=== PATIENT | female | born 1985 | race Caucasian/White ===

== ENCOUNTER 2017-09-05 11:50 | Inpatient (IN) | payer OTHER ==
[~2017-09-05] VITALS: Ht 165.1 cm; Wt 87.1 kg
[~2017-09-05 11:50] MED LIST: TRIAMCINOLONE A80 G2 TOP
[2017-09-05 11:57] VITALS: BP 113/71
[2017-09-05] MEDS ORDERED: WELLBUTRIN XL300 MG PO (12:00)
[2017-09-05 12:27] LABS: HEMATOCRIT 41.8 % (37.0-47.0); HEMOGLOBIN 14.2 gm/dL (12.0-15.0); MCH 29.7 pg (26.0-34.0); MCHC 34.1 g/dL (28.0-37.0); MCV 87.2 fL (80.0-100.0); MPV 8.3 fl. (7.2-11.1); NUCLEATED RBCS 0 /100WBC; PLATELET COUNT* 203 thou/uL (150-400); RBC 4.79 mil/uL (4.20-5.00); WBC 21.3 thou/uL (4.0-11.0)
[2017-09-05 12:42] LABS: CALCIUM 9.2 mg/dL (8.5-10.1); CREATININE 0.7 mg/dL (0.6-1.3); TOTAL PROTEIN 8.1 g/dL (6.4-8.2)
[2017-09-05 12:46] LABS: ABSOLUTE LYMPHOCYTES 1.1 thou/uL (0.8-5.3); ABSOLUTE MONOCYTES 0.4 thou/uL (0.0-1.2); ABSOLUTE NEUTROPHILS 19.8 thou/uL (1.6-8.1); PLATELET ESTIMATE ADEQUATE
[2017-09-05 12:48] LABS: ALBUMIN 3.9 g/dL (3.4-5.0); POTASSIUM 3.1 mmol/L (3.5-5.1)
[2017-09-05 13:22] LABS: URINE BILIRUBIN NEGATIVE (Negative); URINE BLOOD 2+ (Negative); URINE CLARITY CLEAR; URINE COLOR ORANGE; URINE GLUCOSE-RANDOM NEGATIVE (Negative); URINE KETONES 1+ (Negative); URINE LEUKOCYTES-REFLEX 1+ (Negative); URINE NITRITE-REFLEX NEGATIVE (Negative); URINE PROTEIN NEGATIVE (Negative); URINE UROBILINOGEN 0.2 E.U./dl (0.2-1.0)
[2017-09-05 13:28] LABS: BACTERIA-REFLEX 1-9 Few /HPF (None Seen); CASTS None Seen /LPF (None Seen); CRYSTALS None Seen /LPF (None Seen); SQUAMOUS 4-10 Moderate /LPF (0-3); URINE RBC 3-10 Few /HPF (0-2); URINE WBC-REFLEX 0-5 Rare /HPF (0-5)
[2017-09-05 15:43] VITALS: BP 93/49
[2017-09-05 16:32] VITALS: BP 111/69
[2017-09-05 19:35] VITALS: BP 113/65
--- NOTE | 2017-09-05 19:55 | NUR ---
PATIENT ARRIVED FROM ER AT 1615. PATIENT SETTLED TO ROOM. HISTORY, ASSESSMENT AND VITALS COMPLETED AND DOCUMENTED. PATIENT HAD COMPLAINTS OF ABDOMINAL CRAMPING TREATED PARTIALLY WITH MORPHINE. DR DUNLAP NOTIFIED AND CHANGED TO [facility]. PATIENT TOLERATING CLEAR LIQUIDS. PATIENT HAS HAD NO NAUSEA/VOMITING SINCE ARRIVING TO UNIT. PATIENT FAMILY UNHAPPY THAT DR NOT ROUNDING TONIGHT, FAMILY REASSURED OF TREATMENT PLAN AND THAT DOCTOR WILL ROUNF TOMORROW. PATIENT HAS CALL LIGHT WITHIN REACH. WILL CONTINUE TO MONITOR.
[2017-09-06 03:16] VITALS: BP 102/54
[2017-09-06 04:51] LABS: HEMATOCRIT 31.9 % (37.0-47.0); MCH 29.6 pg (26.0-34.0); MCHC 33.7 g/dL (28.0-37.0); MPV 9.2 fl. (7.2-11.1); RBC 3.62 mil/uL (4.20-5.00); RDW-CV 13.4 % (10.5-14.5); WBC 12.1 thou/uL (4.0-11.0)
[2017-09-06 04:59] LABS: HEMOGLOBIN 10.7 gm/dL (12.0-15.0)
--- NOTE | 2017-09-06 05:11 | NUR ---
PT SLEPT AT INTERVALS DURING THE NIGHT, IV FLUIDS AND ANTIBIOTICS GIVEN, SPOE WITH DR. DUNLAP AT START OF SHIFT AND PAIN MED CHANGED TO [facility]. PT REPORTS IMPROVED PAIN RELIEF. UP SBA TO THE BATHROOM, WARM BLANKET TO ABDOMEN WELL. CALL LIGHT IN REACH, WILL CONTINUE TO MONITOR
[2017-09-06 05:25] LABS: ALBUMIN 2.7 g/dL (3.4-5.0); CALCIUM 7.8 mg/dL (8.5-10.1); CREATININE 0.6 mg/dL (0.6-1.3); MAGNESIUM 1.9 mg/dL (1.8-2.4); POTASSIUM 3.6 mmol/L (3.5-5.1); TOTAL BILIRUBIN 0.5 mg/dL (<0.1-1.0); TOTAL PROTEIN 5.6 g/dL (6.4-8.2)
[2017-09-06 08:00] VITALS: BP 101/57
[2017-09-06 09:44] LABS: AMP/METHAMP Negative (Negative); BARBITURATES Negative (Negative); BENZODIAZEPINES Negative (Negative); COCAINE Negative (Negative); METHADONE Negative (Negative); OPIATES POSITIVE (Negative); PCP Negative (Negative); THC Negative (Negative)
--- NOTE | 2017-09-06 16:28 | NUR ---
MET WITH PT TO DISCUSS HOME SITUATION/DC PLANNING. PT LIVES WITH SPOUSE AND CHILDREN. SHE IS INDEPENDENT AND ACTIVE. WORKS OUTSIDE THE HOME. USES NO EQUIPMENT. PT DENIES ANY DC NEEDS. WILL FOLLOW
[2017-09-06 17:09] VITALS: BP 122/56
--- NOTE | 2017-09-06 19:43 | NUR ---
RECEIVED REPORT. ASSUMED CARE OF PT AT 0730. VSS. O2 SAT 96% ON RA. PT A&O X4. AM ASSESSMENT AND VITALS COMPLETED CHARTED. IV PATENT AND INSUING IVF. PT HAS REPORTED ABDOMEN PAIN THROUGHOUT THE SHIFT THAT HAS BEEN PARTIALLY MANAGED WITH IV PAIN MEDICATION AND PHENERGAN. PT HAS BEEN ABLE TO REST OFF AND ON THROUGHOUT THE SHIFT. PT DIET PROGRESSED FROM CLEARS TO REGULAR - PT ONLY ATE ABOUT 25% OF MEALS. URINE OUTPUT NOTED TO BE DARK NEFTALY COLOR. PT UP TO BATHROOM WITH STABDBY ASSIST SEVERAL TIMES TO VOID. DR NOTIFIED OF URINE CONCENTRATION. CONSULT CALLED TO GYNECOLOGY FOR LOW IUD POSITION, DR HERNANDEZ ARRIVED TO SEE PT THIS EVENING BUT PT AND FAMILY HAVE DECIDED TO TRANSFER PT TO . TRANSFER FACILITATED BY DR DOZIER AND GOURMET COFFEE ATTENDANT. PT HAS BEEN FRIENDLY AND COOPERATIVE THIS SHIFT, FAMILY STATES THEY "PREFER THE CARE AT ". LOW FALL RISK PRECAUTIONS IN PLACE. CALL LIGHT IS WITHIN REACH. HOURLY ROUNDING PERFORED. ALL NEEDS MET AT THIS TIME.
[2017-09-06 20:15] VITALS: BP 99/50
--- NOTE | 2017-09-06 20:15 | NUR ---
PATIENT TRANSFERRED TO [facility], PAPERS SENT, REPORT ALREADY GIVEN EALIER TO NURSE PER DAY SHIFT NURSE, VITALS TAKEN AT DISCHARGE. MOTHER AT BEDSIDE. TRANSFERRED BY AMBULANCE.
== END 2017-09-06 20:15 | disposition short-term general hospital (02) | DRG 372 ==
LOC: M.ERS 11:50 → M.3W 14:33 → M.TBA-ER 14:33 → M.3W 16:05
PROVIDERS: Internal Medicine; Physician Assistant; ADMIT Internal Medicine
DX: A04.9 Bacterial intestinal infection, unspecified (principal); R65.10 Systemic inflammatory response syndrome (SIRS) of non-infectious origin without acute organ dysfunction; F32.9 Major depressive disorder, single episode, unspecified; F17.210 Nicotine dependence, cigarettes, uncomplicated; K52.9 Noninfective gastroenteritis and colitis, unspecified; E86.0 Dehydration; Z79.899 Other long term (current) drug therapy

== ENCOUNTER 2017-09-30 08:47 | Emergency (ER) | payer OTHER ==
[~2017-09-30] VITALS: Ht 165.1 cm; Wt 85.7 kg
[~2017-09-30 08:47] MED LIST changes: +WELLBUTRIN XL300 MG PO
[2017-09-30 09:58] LABS: URINE BILIRUBIN NEGATIVE (Negative); URINE BLOOD NEGATIVE (Negative); URINE CLARITY CLEAR; URINE COLOR YELLOW; URINE GLUCOSE-RANDOM NEGATIVE (Negative); URINE KETONES NEGATIVE (Negative); URINE LEUKOCYTES-REFLEX 1+ (Negative); URINE NITRITE-REFLEX NEGATIVE (Negative); URINE PROTEIN NEGATIVE (Negative); URINE UROBILINOGEN 0.2 E.U./dl (0.2-1.0)
[2017-09-30 10:06] LABS: CASTS None Seen /LPF (None Seen); CRYSTALS None Seen /LPF (None Seen); MUCUS 4-6 Moderate strn/LPF (None Seen); SQUAMOUS 4-10 Moderate /LPF (0-3); URINE RBC 0-2 Rare /HPF (0-2); URINE WBC-REFLEX 6-15 Few /HPF (0-5)
[2017-09-30 10:41] LABS: ABSOLUTE BASOPHILS 0.1 thou/uL (0.0-0.2); ABSOLUTE EOSINOPHILS 0.2 thou/uL (0.0-0.7); ABSOLUTE LYMPHOCYTES 2.6 thou/uL (0.8-5.3); ABSOLUTE MONOCYTES 0.2 thou/uL (0.0-1.2); BASOPHILS 1.4 %; EOSINOPHILS 2.2 %; HEMATOCRIT 40.6 % (37.0-47.0); HEMOGLOBIN 13.8 gm/dL (12.0-15.0); LYMPHOCYTES 28.2 %; MCH 29.5 pg (26.0-34.0); MCHC 33.9 g/dL (28.0-37.0); MCV 87.1 fL (80.0-100.0); MONOCYTES 2.6 %; MPV 8.4 fl. (7.2-11.1); NUCLEATED RBCS 0 /100WBC; PLATELET COUNT* 201 thou/uL (150-400); POLYS 65.6 %; RBC 4.66 mil/uL (4.20-5.00); WBC 9.2 thou/uL (4.0-11.0)
[2017-09-30 10:50] LABS: CALCIUM 8.9 mg/dL (8.5-10.1); CREATININE 0.8 mg/dL (0.6-1.3); POTASSIUM 4.1 mmol/L (3.5-5.1)
[2017-09-30 10:54] LABS: ALBUMIN 3.7 g/dL (3.4-5.0); TOTAL BILIRUBIN 0.3 mg/dL (<0.1-1.0); TOTAL PROTEIN 7.5 g/dL (6.4-8.2)
[2017-09-30] MEDS ORDERED: ZOFRAN ODT4 MG DISSOLVE (14:38)
[2017-09-30] MEDS ORDERED: TRAMADOL 50 MG50 MG PO (14:38)
[2017-09-30] MEDS ORDERED: BACTRIM DS TAB1 EACH PO (14:38)
[2017-09-30 14:57] VITALS: BP 110/71
== END 2017-09-30 15:00 | disposition home or self-care (01) ==
LOC: M.ERS 08:47
PROVIDERS: Nurse Practitioner Psychiatric/Mental Health
DX: K80.80 Other cholelithiasis without obstruction (principal); N39.0 Urinary tract infection, site not specified; F32.9 Major depressive disorder, single episode, unspecified; F17.210 Nicotine dependence, cigarettes, uncomplicated

== ENCOUNTER 2018-01-20 11:03 | Emergency (ER) | payer OTHER ==
[~2018-01-20] VITALS: Ht 165.1 cm; Wt 83.0 kg
[~2018-01-20 11:03] MED LIST changes: +BACTRIM DS TAB1 EACH PO; +TRAMADOL 50 MG50 MG PO; +ZOFRAN ODT4 MG DISSOLVE
[2018-01-20 11:20] LABS: ABSOLUTE BASOPHILS 0.1 thou/uL (0.0-0.2); ABSOLUTE LYMPHOCYTES 1.4 thou/uL (0.8-5.3); ABSOLUTE MONOCYTES 0.3 thou/uL (0.0-1.2); ABSOLUTE NEUTROPHILS 8.3 thou/uL (1.6-8.1); BASOPHILS 0.8 %; EOSINOPHILS 0.5 %; HEMATOCRIT 42.6 % (37.0-47.0); HEMOGLOBIN 14.7 gm/dL (12.0-15.0); MCH 30.5 pg (26.0-34.0); MCHC 34.6 g/dL (28.0-37.0); MCV 88.1 fL (80.0-100.0); MONOCYTES 2.5 %; MPV 8.9 fl. (7.2-11.1); NUCLEATED RBCS 0 /100WBC; PLATELET COUNT* 232 thou/uL (150-400); POLYS 82.2 %; RBC 4.84 mil/uL (4.20-5.00); RDW-CV 12.8 % (10.5-14.5); WBC 10.1 thou/uL (4.0-11.0)
[2018-01-20 11:24] LABS: CALCIUM 8.8 mg/dL (8.5-10.1); CREATININE 0.8 mg/dL (0.6-1.3); POTASSIUM 4.3 mmol/L (3.5-5.1)
[2018-01-20 11:29] LABS: ALBUMIN 4.2 g/dL (3.4-5.0); TOTAL BILIRUBIN 0.3 mg/dL (<0.1-1.0); TOTAL PROTEIN 8.2 g/dL (6.4-8.2)
[2018-01-20 11:49] LABS: URINE BILIRUBIN 1+ (Negative); URINE BLOOD 3+ (Negative); URINE CLARITY CLOUDY; URINE COLOR BROWN; URINE GLUCOSE-RANDOM NEGATIVE (Negative); URINE KETONES 1+ (Negative); URINE LEUKOCYTES NEGATIVE (Negative); URINE NITRITE NEGATIVE (Negative); URINE PROTEIN 2+ (Negative); URINE SPECIFIC GRAVITY >= 1.030 (1.005-1.030); URINE UROBILINOGEN 0.2 E.U./dl (0.2-1.0)
[2018-01-20 11:52] LABS: ICTOTEST (BILI CONFIRMATORY) Negative (Negative)
[2018-01-20 12:04] LABS: BACTERIA 1-9 Few /HPF (None Seen); MUCUS 4-6 Moderate strn/LPF (None Seen); SQUAMOUS 4-10 Moderate /LPF (0-3); URINE RBC >20 Many /HPF (0-2); URINE WBC 0-5 Rare /HPF (0-5)
[2018-01-20 12:05] LABS: CASTS None Seen /LPF (None Seen); CRYSTALS None Seen /LPF (None Seen)
[2018-01-20 13:37] VITALS: BP 104/66
== END 2018-01-20 13:38 | disposition home or self-care (01) ==
LOC: M.ERS 11:03
PROVIDERS: Physician Assistant Surgical
DX: R10.2 Pelvic and perineal pain (principal); R11.2 Nausea with vomiting, unspecified; F32.9 Major depressive disorder, single episode, unspecified; F17.210 Nicotine dependence, cigarettes, uncomplicated

== ENCOUNTER 2018-02-07 07:38 | Emergency (ER) | payer OTHER ==
[~2018-02-07] VITALS: Ht 165.1 cm; Wt 99.8 kg
[2018-02-07 08:06] LABS: URINE BILIRUBIN NEGATIVE (Negative); URINE BLOOD 3+ (Negative); URINE CLARITY SL CLOUDY; URINE COLOR YELLOW; URINE GLUCOSE-RANDOM NEGATIVE (Negative); URINE KETONES NEGATIVE (Negative); URINE LEUKOCYTES-REFLEX 1+ (Negative); URINE NITRITE-REFLEX NEGATIVE (Negative); URINE PROTEIN 1+ (Negative); URINE SPECIFIC GRAVITY >= 1.030 (1.005-1.030)
[2018-02-07 08:23] LABS: SQUAMOUS 0-3 Few /LPF (0-3)
[2018-02-07 08:24] LABS: CASTS None Seen /LPF (None Seen); CRYSTALS None Seen /LPF (None Seen); MUCUS 0-3 Light strn/LPF (None Seen); URINE WBC-REFLEX 6-15 Few /HPF (0-5)
[2018-02-07 08:29] LABS: MPV 9.1 fl. (7.2-11.1)
[2018-02-07 08:31] LABS: ABSOLUTE BASOPHILS 0.1 thou/uL (0.0-0.2); ABSOLUTE EOSINOPHILS 0.2 thou/uL (0.0-0.7); ABSOLUTE LYMPHOCYTES 2.9 thou/uL (0.8-5.3); ABSOLUTE MONOCYTES 0.4 thou/uL (0.0-1.2); ABSOLUTE NEUTROPHILS 8.5 thou/uL (1.6-8.1); EOSINOPHILS 1.3 %; HEMATOCRIT 42.5 % (37.0-47.0); HEMOGLOBIN 14.6 gm/dL (12.0-15.0); LYMPHOCYTES 23.9 %; MCH 30.1 pg (26.0-34.0); MCHC 34.4 g/dL (28.0-37.0); MCV 87.4 fL (80.0-100.0); MONOCYTES 3.2 %; NUCLEATED RBCS 0 /100WBC; PLATELET COUNT* 205 thou/uL (150-400); POLYS 70.6 %; RBC 4.86 mil/uL (4.20-5.00)
[2018-02-07 08:36] LABS: CALCIUM 8.9 mg/dL (8.5-10.1); CREATININE 0.8 mg/dL (0.6-1.3); POTASSIUM 3.7 mmol/L (3.5-5.1)
[2018-02-07 08:43] LABS: ALBUMIN 3.8 g/dL (3.4-5.0); TOTAL BILIRUBIN 0.3 mg/dL (<0.1-1.0); TOTAL PROTEIN 7.7 g/dL (6.4-8.2)
[2018-02-07] MEDS ORDERED: ZOFRAN4 MG PO (10:32)
[2018-02-07] MEDS ORDERED: BACTRIM DS TAB1 EACH PO (10:32)
[2018-02-07] MEDS ORDERED: HYDROCODON-ACE1 EAC7 PO (10:32)
[2018-02-07 10:49] VITALS: BP 104/65
== END 2018-02-07 10:51 | disposition home or self-care (01) ==
LOC: M.ERS 07:38
PROVIDERS: Emergency Medicine
DX: N83.202 Unspecified ovarian cyst, left side (principal); N83.201 Unspecified ovarian cyst, right side; N39.0 Urinary tract infection, site not specified